=== PATIENT | male | born 1980 | race Caucasian/White ===

== ENCOUNTER 2017-07-12 10:05 | Emergency (ER) | payer OTHER | END 2017-07-12 10:56 | disposition home or self-care (01) | LOC: FTE 10:05 | DX: R22.42 Localized swelling, mass and lump, left lower limb (principal) | CPT/HCPCS: 99283; Z7502 ==

== ENCOUNTER 2018-09-28 08:37 | Emergency (ER) | payer OTHER | END 2018-09-28 10:38 | disposition home or self-care (01) | LOC: E/R 08:37 | DX: F31.9 Bipolar disorder, unspecified (principal) | CPT/HCPCS: 99282 ==